=== PATIENT | female | born 1950 | race Hispanic/Latino ===

== ENCOUNTER 2016-07-24 06:46 | Day surgery (SDC) | payer BC ==
[2016-07-24] MEDS ORDERED: ECOTRIN PO ONE (07:02)
[2016-07-24] MEDS ORDERED: NACL 0.9% 500 ML 500 ML IV SCH (08:00)
[2016-07-24] MEDS ORDERED: XYLOCAINE 2% INFILTRATI ONE (08:13)
[2016-07-24] MEDS ORDERED: HEPARIN/NS 5000 UNIT/500ML(CATH LAB) 1,000 ML IR ONE (08:13)
[2016-07-24] MEDS ORDERED: VERSED ONE (08:28)
[2016-07-24] MEDS ORDERED: SUBLIMAZE ONE (08:28)
[2016-07-24] MEDS ORDERED: D5W 0 ML IV ONE (08:29)
[2016-07-24] MEDS ORDERED: NEO SYNEPHRINE ONE (08:30)
--- NOTE | 2016-07-24 09:44 | Short Stay Summary ---
Short Stay Documentation Date of service: 07/24/16 - History H&P: obtained from office - Allergies and Medications Current Medications: Allergies No Known Allergies Allergy (Verified 07/24/16 07:01) Home Medications Medication Instructions Recorded Confirmed Last Taken Type Aspirin EC [Aspirin Enteric Coated 81 mg PO DAILY 07/24/16 07/24/16 07/23/16 History TAB] Calcium Phosphate Trib/Vit D3 1 tab PO DAILY 07/24/16 07/24/16 07/23/16 History [Calcium + Vitamin D3 Gummies] Dapagliflozin Propanediol (Nf) 5 mg PO DAILY 07/24/16 07/24/16 07/23/16 History [Farxiga (Nf)] Escitalopram [Lexapro] 10 mg PO DAILY 07/24/16 07/24/16 07/23/16 History Isosorbide Dinitrate [Isosorbide 30 mg PO DAILY 07/24/16 07/24/16 07/23/16 History Dinitrate] Losartan Potassium [Losartan 25 mg PO DAILY 07/24/16 07/24/16 07/24/16 History Potassium] metFORMIN [Glucophage] 1,000 mg PO DAILY 07/24/16 07/24/16 07/23/16 History Active Medications Sodium Chloride (Nacl 0.9% 500 Ml) 500 mls @ 50 mls/hr IV DIRECT SELMA Stop: 07/24/16 17:59 Last Admin: 07/24/16 07:34 Dose: 50 mls/hr - Brief post op/procedure progress note Date of procedure: 07/24/16 Pre-op diagnosis: cad Post-op diagnosis: same Procedure: see report Anesthesia: local Estimated blood loss: none Pathology: none - Disposition Condition at discharge: Good Disposition: DISCHARGED TO HOME OR SELFCARE - Discharge Diagnoses (1) Abnormal cardiovascular function Status: Acute (2) SOB (shortness of breath) on exertion Status: Acute (3) Diabetes mellitus Status: Chronic Qualifiers: Diabetes mellitus type: type 2 Diabetes mellitus complication status: without complication Diabetes mellitus complication detail: D Diabetic retinopathy severity: D Proliferative retinopathy type: P Diabetes mellitus macular edema: D 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 Laterality: L Chronic kidney disease stage: C Qualified Code(s): E11.9 - Type 2 diabetes mellitus without complications; Z79.4 - care home (current) use of insulin (4) CAD (coronary artery disease), bypass graft transplanted heart Status: Chronic Qualifiers: Associated angina: with stable angina Qualified Code(s): 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
--- NOTE | 2016-07-24 10:55 | Cardiac Catherization Report ---
LEFT HEART CATHETERIZATION CLINICAL INFORMATION: This is a 65-year-old female with a history of coronary artery disease bypass in 1996, cardiac catheterization in 2011, MANDUJANO to LAD was patent, SVG graft had disease, had a poba at anastomosis site and had PCI of the RCA. The patient presents back with shortness of breath with abnormal stress test with moderate ischemia in the lateral region is here for a left heart catheterization. The procedure was performed via the right femoral artery, sterile technique, local anesthesia. 5-[place] groin sheath inserted. FINDINGS: 1. Left main engaged with a JL4 catheter is a small, is 100% in the mid. 2. RCA engaged with JR4 catheter, proximal, mid stents widely patent, mid to distal is patent, medium caliber vessel, bifurcates into a [id number] caliber PDA, PLV with multiple branches that are patent, and right to left extensive collaterals systems, from the PDA PLV feeding into a small OM1 and OM2 vessels and in the [place] circumflex. 3. SVG to OM was 100%, SVG to PDA is 100%. 4. MANDUJANO to LAD was engaged with IM catheter, is a large caliber graft, free of disease at the ostium, body and anastomosis site. LAD feeds into a small to medium caliber, LAD has good retrograde and anterograde and fills a small diagonal 1. LV gram done in [place] and STOUT view shows normal LV function, EF 50-55%, LVEDP of 50 mmHg, LV is 149/15, aortic is 144/60. No gradient across the aortic valve on pullback. 5-[place] catheters were taken over guidewire, 5-[place] groin sheath was discontinued. Manual pressure held. No hematoma. No bleeding. SUMMARY: 1. Left main mid 100%, small vessel. MANDUJANO to LAD is patent. SVG to OM is 100%. SVG to PDA is 100%. 2. RCA proximal, mid stents are patent, extensive collaterals to the circumflex system, which is small from the PDA and PLV. 3. Normal LV function. RECOMMENDATION: Continue medical management. [facility]# [id number] BETSY/ELANA MON
[2016-07-24 13:24] VITALS: BP 130/64
== END 2016-07-24 14:12 | disposition home or self-care (01) ==
LOC: OPU 06:46
PROVIDERS: ATTEND Internal Medicine
DX: I25.10 Atherosclerotic heart disease of native coronary artery without angina pectoris (principal); E11.9 Type 2 diabetes mellitus without complications; I10 Essential (primary) hypertension; E78.2 Mixed hyperlipidemia; Z95.1 Presence of aortocoronary bypass graft; Z87.891 Personal history of nicotine dependence; Z98.61 Coronary angioplasty status; Z79.899 Other long term (current) drug therapy; Z79.82 Long term (current) use of aspirin; Z79.84 Long term (current) use of oral hypoglycemic drugs
CPT/HCPCS: 82962; 93005; 93010; 93459; J1644; J2250; J3010; J7040; J2370; Q9967

== ENCOUNTER 2021-08-23 17:42 | Emergency (ER) | payer MEDICARE | END 2021-08-23 17:50 | disposition left against medical advice (07) | LOC: ED 17:42 | DX: M79.89 Other specified soft tissue disorders (principal); Z53.21 Procedure and treatment not carried out due to patient leaving prior to being seen by health care provider ==